=== PATIENT | male | born 1965 | race Caucasian/White ===

== ENCOUNTER → 2020-08-15 | Outpatient (CLI) | payer OTHER ==
--- NOTE | 2020-08-15 15:16 | Diagnostic Imaging Report ---
INDICATION: Back pain, prior back surgery COMPARISON: None available TECHNIQUE: 3 radiographs of the lumbar spine dated 08/15/2020 FINDINGS: 5 lumbar type vertebral bodies are present. 3 to 4 mm retrolisthesis of L2 on L3. No additional anterolisthesis or retrolisthesis. Moderate anterior wedge deformity and superior endplate compression deformity of L2. Otherwise, vertebral body heights are well-maintained. Moderate disc space height loss at L1/L2. Multilevel lateral osteophytes, particularly about the thoracolumbar junction. The sacroiliac joints are intact. No acute fracture. Scattered facet joint degenerative changes, greatest in the lower lumbar spine. Mild background vascular calcifications. IMPRESSION: Age-indeterminate moderate compression deformity of L2. Given appearance and adjacent disc space height loss, it is favored that this is chronic in nature. Comparison to prior imaging would be beneficial. Mild multilevel degenerative changes. Dictated by: Dictated on workstation # [id number]
--- NOTE | 2020-08-15 16:08 | Diagnostic Imaging Report ---
INDICATION: Cervical arthritis. History of previous cervical fusion. COMPARISON: None FINDINGS: Frontal and lateral radiographic views of the cervical spine were obtained. Patient is status post previous anterior fusion of C3-C6. Fusion hardware is intact and appears well-positioned in regards to the cervical spine. Intervertebral disc spacers are also noted and appear appropriately positioned. Static alignment of the cervical spine is maintained. There is no significant erin- or retrolisthesis. There is no evidence of jumped facets. No unexpected radiopaque foreign bodies are seen. There is no acute fracture. There may be multilevel osseous ankylosis of the cervical spine, although evaluation is suboptimal secondary to planar technique. Surrounding soft tissue structures are unremarkable. Open-mouth view shows normal C1-C2 alignment. IMPRESSION: 1. Expected postsurgical changes of previous anterior cervical fusion as described above. 2. No acute fracture or dislocation. Dictated by: Dictated on workstation # [id number]
== END ==
LOC: RAD 08:57
PROVIDERS: ATTEND Anesthesiology Pain Medicine
DX: Z02.71 Encounter for disability determination (principal); M47.816 Spondylosis without myelopathy or radiculopathy, lumbar region; M51.06 Intervertebral disc disorders with myelopathy, lumbar region; Z98.1 Arthrodesis status
CPT/HCPCS: 72040; 72100

== ENCOUNTER 2022-10-18 11:08 | Emergency (ER) | payer BC, OTHER ==
[~2022-10-18] VITALS: Ht 187.9 cm; Wt 106.6 kg
[2022-10-18] MEDS ORDERED: hydrALAZINE (APESOLINE) 20 MG/ML VIAL IV STA (11:24)
[2022-10-18] MEDS ORDERED: NS IV 1000 ML 1,000 ML IV STA (11:24)
[2022-10-18] MEDS ORDERED: ASPIRIN 81 MG CHEW (CHILDREN'S ASA) PO ONE (11:30)
[2022-10-18 11:31] LABS: BASOPHILS # (AUTO) 0.1 10^3/uL (0.0-0.1); BASOPHILS % (AUTO) 1 % (0-10); EOSINOPHILS # (AUTO) 0.1 10^3/uL (0.0-0.3); EOSINOPHILS % (AUTO) 1 % (0-10); HEMATOCRIT 50 % (40-54); HEMOGLOBIN 16.5 g/dL (13.3-17.7); INR 0.9 (0.8-1.4); LYMPHOCYTES # (AUTO) 1.8 10^3/uL (1.0-4.0); LYMPHOCYTES % (AUTO) 24 % (12-44); MEAN CORPUSCULAR HEMOGLOBIN 32 pg (25-34); MEAN CORPUSCULAR HGB CONC 33 g/dL (32-36); MEAN CORPUSCULAR VOLUME 96 fL (80-99); MEAN PLATELET VOLUME 9.6 fL (9.0-12.2); MONOCYTES # (AUTO) 0.9 10^3/uL (0.0-1.0); MONOCYTES % (AUTO) 11 % (0-12); NEUTROPHILS # (AUTO) 4.8 10^3/uL (1.8-7.8); NEUTROPHILS % (AUTO) 62 % (42-75); PLATELET COUNT 267 10^3/uL (130-400); PROTHROMBIN TIME PATIENT 13.1 SEC (12.2-14.7); WHITE BLOOD COUNT 7.6 10^3/uL (4.3-11.0)
[2022-10-18 11:41] LABS: ALBUMIN 4.3 GM/DL (3.2-4.5); BILIRUBIN,TOTAL 0.4 MG/DL (0.1-1.0); CREATININE SERUM 1.05 MG/DL (0.60-1.30); POTASSIUM 4.1 MMOL/L (3.6-5.0); TOTAL PROTEIN 7.6 GM/DL (6.4-8.2)
--- NOTE | 2022-10-18 11:42 | ED General ---
General Chief Complaint: Chest Pain Stated Complaint: CHEST PAIN; NEAR SYNCOPE; LIGHT-HEADED Nursing Triage Note: Patient reports he was driving home from breakfast at [employer] when he became lightheaded and nearly passed out. He states he had two more periods of lightheadedness, then developed chest tightness. Source of Information: Patient History of Present Illness Date Seen by Provider: October 18, 2022 Time Seen by Provider: 11:09 Initial Comments 57-year-old male presenting with complaints of feeling dizzy and lightheaded. He felt like he was going to pass out he had just left [employer] after having some breakfast. He had drink some soda this morning but has not had much in the way of water. He was unsure if the chest tightness was due to anxiety or if it was related to his feeling of nearly passing out. He reports a history of anxiety but that it has been years since he had anxiety attack. He has a primary care provider in [place] that was refilling blood pressure medicine for him however he has not seen a doctor for a few years. He denies having abdominal pain but states he did have some mild nausea. He did not have any vomiting. He denies fever, chills, abdominal pain, change in vision, numbness or tingling in his arms or legs. Timing/Duration: 1/2 Hour Severity: Moderate Modifying Factors: worse with Movement Associated Systoms: Chest Pain (Tightness in the chest); No Cough, No Diaphoresis, No Fever/Chills, No Headaches, No Loss of Appetite, No Malaise, No Rash, No Seizure, No Shortness of Air, No Syncope, No Weakness Allergies and Home Medications Allergies Coded Allergies: amoxicillin (Verified Allergy, Unknown, 10/18/22) clavulanic acid (Verified Allergy, Unknown, 10/18/22) Patient Home Medication List Home Medication List Reviewed: Yes Review of Systems Review of Systems Constitutional: see HPI; No chills, No fever EENTM: no symptoms reported Respiratory: no symptoms reported Cardiovascular: see HPI Gastrointestinal: see HPI Genitourinary: no symptoms reported Musculoskeletal: no symptoms reported Skin: no symptoms reported Psychiatric/Neurological: Anxiety Past [id number]-[id number] Hx Patient Social History Tobacco Use?: No Substance use?: No Alcohol Use?: Yes Alcohol type: Beer Pt feels they are or have been: No Past Medical History Surgery/Hospitalization HX: HTN, neck fusion, appendectomy, nasal septum repair, eardrum surgery Physical Exam Vital Signs Vital Signs - First Documented 10/18/22 11:10 Temp 37.0 Pulse 110 Resp 18 B/P (MAP) 221/110 (147) Pulse Ox 96 O2 Delivery Room Air Capillary Refill : Less Than 3 Seconds Height, Weight, BMI Height: '" Weight: lbs. oz. 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 Norm as Tested Skin: Warm/Dry Progress/Results/Core Measures Suspected Sepsis SIRS Temperature: Pulse: 110 Respiratory Rate: 18 Laboratory Tests 10/18/22 11:20: White Blood Count 7.6 Blood Pressure 221 /110 Mean: 147 Laboratory Tests 10/18/22 11:20: Creatinine 1.05, INR Comment 0.9, Platelet Count 267, Total Bilirubin 0.4 Results/Orders Lab Results Laboratory Tests Test 10/18/22 11:20 10/18/22 12:13 10/18/22 13:00 Range/Units White Blood Count 7.6 4.3-11.0 10^3/uL Red Blood Count 5.19 4.30-5.52 10^6/uL Hemoglobin 16.5 13.3-17.7 g/dL Hematocrit 50 40-54 % Mean Corpuscular Volume 96 80-99 fL Mean Corpuscular Hemoglobin 32 25-34 pg Mean Corpuscular Hemoglobin Concent 33 32-36 g/dL Red Cell Distribution Width 12.7 10.0-14.5 % Platelet Count 267 130-400 10^3/uL Mean Platelet Volume 9.6 9.0-12.2 fL Immature Granulocyte % (Auto) 0 % Neutrophils (%) (Auto) 62 42-75 % Lymphocytes (%) (Auto) 24 12-44 % Monocytes (%) (Auto) 11 0-12 % Eosinophils (%) (Auto) 1 0-10 % Basophils (%) (Auto) 1 0-10 % Neutrophils # (Auto) 4.8 1.8-7.8 10^3/uL Lymphocytes # (Auto) 1.8 1.0-4.0 10^3/uL Monocytes # (Auto) 0.9 0.0-1.0 10^3/uL Eosinophils # (Auto) 0.1 0.0-0.3 10^3/uL Basophils # (Auto) 0.1 0.0-0.1 10^3/uL Immature Granulocyte # (Auto) 0.0 0.0-0.1 10^3/uL Prothrombin Time 13.1 12.2-14.7 SEC INR Comment 0.9 0.8-1.4 Activated Partial Thromboplast Time 27 24-35 SEC Sodium Level 140 135-145 MMOL/L Potassium Level 4.1 3.6-5.0 MMOL/L Chloride Level 102 98-107 MMOL/L Carbon Dioxide Level 27 21-32 MMOL/L Anion Gap 11 5-14 MMOL/L Blood Urea Nitrogen 11 7-18 MG/DL Creatinine 1.05 0.60-1.30 MG/DL Estimat Glomerular Filtration Rate 83 BUN/Creatinine Ratio 10 Glucose Level 121 H 70-105 MG/DL Calcium Level 10.0 8.5-10.1 MG/DL Corrected Calcium 9.8 8.5-10.1 MG/DL Magnesium Level 2.0 1.6-2.4 MG/DL Total Bilirubin 0.4 0.1-1.0 MG/DL Aspartate Amino Transf (AST/SGOT) 18 5-34 U/L Alanine Aminotransferase (ALT/SGPT) 13 0-55 U/L Alkaline Phosphatase 81 40-136 U/L Troponin I < 0.30 < 0.30 <0.30 NG/ML Pro-B-Type Natriuretic Peptide 118.2 <125.0 PG/ML Total Protein 7.6 6.4-8.2 GM/DL Albumin 4.3 3.2-4.5 GM/DL Lipase 30 8-78 U/L Urine Color YELLOW Urine Clarity CLEAR Urine pH 6.0 5-9 Urine Specific [place] <=1.005 1.016-1.022 Urine Protein NEGATIVE NEGATIVE Urine Glucose (UA) NEGATIVE NEGATIVE Urine Ketones NEGATIVE NEGATIVE Urine Nitrite NEGATIVE NEGATIVE Urine Bilirubin NEGATIVE NEGATIVE Urine Urobilinogen 0.2 < = 1.0 MG/DL Urine Leukocyte Esterase NEGATIVE NEGATIVE Urine RBC (Auto) NEGATIVE NEGATIVE Urine RBC 0-2 /HPF Urine WBC RARE /HPF Urine Squamous Epithelial Cells 2-5 /HPF Urine Crystals NONE /LPF Urine Bacteria NEGATIVE /HPF Urine Casts NONE /LPF Urine Mucus NEGATIVE /LPF Urine Culture Indicated NO My Orders Orders - MARILYNN ROSALES MD Cbc With Automated Diff (10/18/22 11:24) Magnesium (10/18/22 11:24) Chest 1 View Ap/Pa Only (10/18/22 11:24) Ekg Tracing (10/18/22 11:24) Comprehensive Metabolic Panel (10/18/22 11:24) Protime With Inr (10/18/22 11:24) Partial Thromboplastin Time (10/18/22 11:24) O2 (10/18/22 11:24) Monitor-Rhythm Ecg Trace Only (10/18/22 11:24) Aspirin Chewable Tablet (Baby Aspirin Ch (10/18/22 11:30) Ed Iv/Invasive Line Start (10/18/22 11:24) Lipase (10/18/22 11:24) Troponin I Fs (10/18/22 11:24) Probnp Fs (10/18/22 11:24) Hydralazine Injection (Apresoline Inject (10/18/22 11:24) Ns Iv 1000 Ml (Sodium Chloride 0.9%) (10/18/22 11:24) Ua Culture If Indicated (10/18/22 11:29) Troponin I Fs (10/18/22 13:00) Medications Given in ED Current Medications Medications Dose Ordered Sig/Prashant Route Start Time Stop Time Status Last Admin Dose Admin Aspirin 324 mg ONCE ONCE PO 10/18/22 11:30 10/18/22 11:31 DC 10/18/22 11:36 324 MG Vital Signs/I&O 10/18/22 10/18/22 11:10 13:43 Temp 37.0 Pulse 110 86 Resp 18 17 B/P (MAP) 221/110 (147) 156/92 Pulse Ox 96 96 O2 Delivery Room Air Room Air Capillary Refill : Less Than 3 Seconds Blood Pressure Mean: 147 Progress Note #1: Progress Note Potential diagnosis of hypertensive urgency, anxiety, dehydration, myocardial infarction, congestive heart failure, electrolyte imbalance, renal failure, hepatic failure. Obtain peripheral IV access and send labs for complete blood count, compreh ensive metabolic profile, coagulation factors, troponin, proBNP, magnesium. Administer normal saline 1 L IV fluid bolus for hydration. Placed on cardiac pvc monitor on my initial interpretation it shows sinus rhythm with a heart rate in the 90s. Electrocardiogram shows sinus rhythm with first-degree AV block and frequent supraventricular premature complexes. He had no ST elevation. He had no prior electrocardiogram for comparison. Obtain a 1 view chest x-ray to look for pathology in his chest. Initial blood pressure was 220/110 so a dose of hydralazine 10 mg IV was ordered. However on recheck his blood pressure was coming down on its own without intervention. Will hold the hydralazine. Aspirin 324 mg p.o. x1 for potential acute coronary syndrome. Progress Note #2: Progress Note Although hydralazine was ordered 10 mg IV the patient did not receive it as his blood pressure was coming down on its own. I did not want to drop his blood pressure too low and since it came down to the 1 40-1 50 systolic range from 220/110 when he arrived I felt like this might be partly from anxiety. His comprehensive metabolic panel did not show any acute significant electrolyte abnormalities. His troponin was less than 0.3. His complete blood count was not showing an elevated white blood cell count for infection as it was at 7.6. He also was not showing anemia with a hemoglobin of 16.5. His coagulation factors were in the normal range and not as elevated or indicating coagulopathy. We will repeat the troponin there is a 2-hour huma to see if it was changing. On my personal interpretation and review his chest x-ray did not show any acute infiltrate or effusion. Patient reported feeling a lot better as the fluids were infusing. Progress Note #3: Progress Note Repeat troponin was still less than 0.3. Counseled patient that his blood pressure has been running a little high here in the emergency department 1 40-1 60s. Encouraged to have a diary or log of his blood pressure readings at home and to follow-up with the clinic so that he could have them help control his blood pressure and see if he needed adjustment on his medications. ECG Initial ECG Impression Date: October 18, 2022 Initial ECG Impression Time: 11:12 Initial ECG Rate: 108 Initial ECG Rhythm: S.Tach Initial ECG Comparisson: No Previous ECG Available Comment On personal interpretation and review his electrocardiogram shows sinus tachycardia with a heart rate of 108 bpm. He has first-degree AV block with a NC interval of 213 ms. He has frequent supraventricular premature complexes. QT interval 334 ms with a QTc interval 397 ms. He has no acute ST elevation. He has no prior tracing available for comparison. Diagnostic Imaging Diagonstic Imaging: Xray Plain Films/CT/US/NM/MRI: chest Comments [facility] [place], [place] NAME: LESLY TORRE [facility] REC#: [id number] PT STATUS: REG ER : 1965 PHYSICIAN: MARILYNN ROSALES MD ADMIT DATE: 10/18/22/ER FS Signed Date of Exam:10/18/22 CHEST 1 VIEW AP/PA ONLY INDICATION: Chest pain. TECHNIQUE: Frontal chest obtained at 11:27 a.m. COMPARISON: There is no prior study for comparison. FINDINGS: Heart is borderline in size. Mediastinal silhouette is unremarkable. The lungs are clear. There is no pneumothorax or pleural fluid. IMPRESSION: Borderline heart size with no acute process in the chest. Dictated by: Dictated on workstation # [id number] Dict: 10/18/22 1136 Trans: 10/18/22 1206 [id number] [id number] Interpreted by: CRYSTAL JOY MD Electronically signed by: CRYSTAL JOY MD 10/18/22 1206 Reviewed: Reviewed by Me (I reviewed the radiologist report at 1215) Departure Impression Primary Impression: Near syncope Additional Impression: Hypertension Qualified Codes: I10 - Essential (primary) hypertension Disposition: 01 HOME, SELF-CARE Condition: Stable Departure-Patient Inst. Decision time for Depature: 13:34 Referrals: [facility] [place] Patient Instructions: High Blood Pressure ED, Near Fainting (DC), DASH Diet Add. Discharge Instructions: Stay well-hydrated and drink plenty of fluids. Check your blood pressure at home and monitor it. Your blood pressure has been high in the ER and this may be contributing to your symptoms. You may need your medicine dose adjusted or additional medicine added to control your blood pressure better. Check back with Dr. Gan or establish care with local provider to help manage your blood pressure. All discharge instructions reviewed with patient and/or family. Voiced understanding. MARILYNN ROSALES MD October 18, 2022 11:42
--- NOTE | 2022-10-18 11:46 | Diagnostic Imaging Report ---
INDICATION: Chest pain. TECHNIQUE: Frontal chest obtained at 11:27 a.m. COMPARISON: There is no prior study for comparison. FINDINGS: Heart is borderline in size. Mediastinal silhouette is unremarkable. The lungs are clear. There is no pneumothorax or pleural fluid. IMPRESSION: Borderline heart size with no acute process in the chest. Dictated by: Dictated on workstation # [id number]
[2022-10-18 12:18] LABS: BILIRUBIN,URINE NEGATIVE (NEGATIVE); CLARITY,URINE CLEAR; COLOR,URINE YELLOW; GLUCOSE, URINE (UA) NEGATIVE (NEGATIVE); KETONES,URINE NEGATIVE (NEGATIVE); LEUKOCYTE ESTERASE ,URINE NEGATIVE (NEGATIVE); NITRITE,URINE NEGATIVE (NEGATIVE); PROTEIN,URINE NEGATIVE (NEGATIVE)
[2022-10-18 12:19] LABS: RBC,URINE 0-2 /HPF; WBC,URINE RARE /HPF
[2022-10-18 12:20] LABS: BACTERIA,URINE NEGATIVE /HPF
[2022-10-18 13:43] VITALS: BP 156/92
== END 2022-10-18 13:50 | disposition home or self-care (01) ==
LOC: EDUNIT# 11:08 → ER FS 11:10
DX: R55 Syncope and collapse (principal); I10 Essential (primary) hypertension; I44.0 Atrioventricular block, first degree; R00.0 Tachycardia, unspecified; Z28.310 Unvaccinated for COVID-19
CPT/HCPCS: 36415; 71045; 80053; 81000; 83690; 83735; 83880; 84484; 85025; 85610; 85730; 93005; 93041